=== PATIENT | male | born 1960 | race African-American/Black ===

== ENCOUNTER 2022-06-04 13:56 | Emergency (ER) | payer MEDICAID, OTHER ==
[~2022-06-04] VITALS: Ht 167.6 cm; Wt 77.0 kg
[2022-06-04] MEDS ORDERED: IBUP-2741 PO (14:06)
[2022-06-04] MEDS ORDERED: HYDROCODONE/ACETAMINOPHEN 5/325MG TABLET PO ONE (16:45)
[2022-06-04] MEDS ORDERED: IBUP-2030 MT (17:36)
[2022-06-04 18:24] VITALS: BP 133/96
[2022-06-04] MEDS ORDERED: HYDROCODONE/ACETAMINOPHEN 5/325MG TABLET PO NR (18:30)
== END 2022-06-04 18:30 | disposition home or self-care (01) ==
LOC: ER 13:56
DX: S93.491A Sprain of other ligament of right ankle, initial encounter (principal); S93.691A Other sprain of right foot, initial encounter; R07.89 Other chest pain; Z90.79 Acquired absence of other genital organ(s); Z98.890 Other specified postprocedural states; V03.00XA Pedestrian on foot injured in collision with car, pick-up truck or van in nontraffic accident, initial encounter; Y93.89 Activity, other specified; Y92.488 Other paved roadways as the place of occurrence of the external cause
CPT/HCPCS: 29515; 71045; 73590; 73610; 73630; 93005; 99284